=== PATIENT | male | born 1960 | race Caucasian/White ===

== ENCOUNTER 2019-10-15 12:13 | Inpatient (IN) ==
[2019-10-15] MEDS ORDERED: NITROGLYCERIN SL 0.4 MG TABLET SL ONE (12:33)
[2019-10-15] MEDS ORDERED: ASPIRIN 325 MG TABLET ONE (12:33)
[2019-10-15] MEDS ORDERED: NITROGLYCERIN SL 0.4 MG TABLET SL PRN (12:38)
[2019-10-15] MEDS ORDERED: ONDANSETRON 4 MG/2 ML VIAL ONE (12:38)
[2019-10-15] MEDS ORDERED: MORPHINE 4 MG/1 ML VIAL IV STA (12:38)
[2019-10-15] MEDS ORDERED: ENOXAPARIN 100 MG/ML SYRINGE SUBCUT ONE (12:38)
[2019-10-15] MEDS ORDERED: ONDANSETRON 4 MG/2 ML VIAL IV STA (12:38)
[2019-10-15] MEDS ORDERED: ASPIRIN 325 MG TABLET PO STA (12:38)
[2019-10-15] MEDS ORDERED: ENOXAPARIN 100 MG/ML SYRINGE SUBCUT STA (12:38)
[2019-10-15] MEDS ORDERED: MORPHINE 4 MG/1 ML VIAL ONE (12:39)
[2019-10-15] MEDS ORDERED: LIDOCAINE 1% 20 ML VIAL ONE (12:42)
[2019-10-15] MEDS ORDERED: ZALEPLON 5 MG CAPSULE PO PRN (12:42)
[2019-10-15] MEDS ORDERED: DOCUSATE SODIUM 100 MG CAPSULE PO PRN (12:42)
[2019-10-15] MEDS ORDERED: HEPARIN/NACL 0.9% 2 UNITS/ML 1,000 ML IV ONE (12:42)
[2019-10-15] MEDS ORDERED: diphenhydrAMINE CAP 25 MG CAPSULE PO ONE (12:45)
[2019-10-15] MEDS ORDERED: DIAZEPAM 5 MG TABLET PO ONE (12:45)
[2019-10-15 12:48] LABS: Basophils % 0.3 % (0.0-0.8); Eosinophils # 0.3 10*3/uL (0.0-0.87); Hemoglobin 16.1 GM/DL (14.0-18.0); Immature Granulocytes % 0.4 %; Immature Granulocytes Absolute 0.05 #; Lymphocytes # 2.9 10*3/uL (1.4-4.0); Lymphocytes % 22.7 % (21.2-54.2); Mean Corpuscular HGB Conc 32.9 GM/DL (32-36); Mean Corpuscular Volume 86.6 FL (87-102); Mean Platelet Volume 10.5 FL (9.6-12.0); Monocytes % 6.9 % (1.7-12.7); Neutrophils % 67.7 % (38.7-73.9); Platelet Count 239 T/CUMM (130-400); Red Blood Count 5.66 MC/CUMM (3.8-5.5); Red Cell Distribution Width 13.2 % (9.3-17.3); White Blood Count 12.8 T/CUMM (4-12)
[2019-10-15] MEDS ORDERED: MIDAZOLAM 2 MG/2 ML VIAL ONE (12:54)
[2019-10-15] MEDS ORDERED: VERAPAMIL 5 MG/2 ML VIAL ONE (12:54)
[2019-10-15] MEDS ORDERED: HYDROmorphone 2 MG/1 ML VIAL ONE (12:54)
[2019-10-15] MEDS ORDERED: NITROGLYCERIN DRIP 50 MG/250 ML BOTTLE IV ONE (12:54)
[2019-10-15] MEDS ORDERED: SODIUM CHLORIDE 0.45% 1,000 ML IV SCH (13:00)
[2019-10-15] MEDS ORDERED: EPTIFIBATIDE 75 MG/100 ML BOTTLE IV ONE (13:02)
[2019-10-15] MEDS ORDERED: EPTIFIBATIDE 20,000 MCG/10 ML VIAL ONE (13:02)
[2019-10-15 13:03] LABS: INR 0.9; PT Patient Result 10.1 SECS (9.8-11.9)
[2019-10-15] MEDS ORDERED: EPTIFIBATIDE 75 MG/100 ML BOTTLE IV SCH (13:06)
[2019-10-15 13:09] LABS: Albumin 3.7 G/DL (3.4-5.0); Bilirubin,Total 0.5 MG/DL (0.2-1.0); Calcium 9.2 MG/DL (8.5-10.1); Osmolality,Calculated 274.7 MOS/KG (273-304)
[2019-10-15] MEDS ORDERED: TICAGRELOR 90 MG TABLET ONE (13:39)
[2019-10-15] MEDS ORDERED: SODIUM CHLORIDE 0.9% 1,000 ML IV SCH (14:00)
[2019-10-15] MEDS: carvediloL 6.25 MG TABLET PO SCH (21:07)
[2019-10-15] MEDS: TICAGRELOR 90 MG TABLET PO SCH (21:08)
[2019-10-15] MEDS: ACETAMINOPHEN 325 MG TABLET PO PRN (21:08)
[2019-10-15] MEDS: ROSUVASTATIN 20 MG TABLET PO SCH (21:08)
[2019-10-16 04:17] LABS: Basophils % 0.2 % (0.0-0.8); Eosinophils # 0.2 10*3/uL (0.0-0.87); Eosinophils % 1.6 % (0.00-10.9); Hematocrit 45.2 VOL% (42.0-52.0); Immature Granulocytes % 0.4 %; Immature Granulocytes Absolute 0.04 #; Lymphocytes # 2.1 10*3/uL (1.4-4.0); Lymphocytes % 19.8 % (21.2-54.2); Mean Corpuscular HGB Conc 33.2 GM/DL (32-36); Mean Corpuscular Volume 85.6 FL (87-102); Mean Platelet Volume 10.9 FL (9.6-12.0); Monocytes % 8.3 % (1.7-12.7); Neutrophils % 69.7 % (38.7-73.9); Platelet Count 215 T/CUMM (130-400); Red Blood Count 5.28 MC/CUMM (3.8-5.5); Red Cell Distribution Width 13.1 % (9.3-17.3); White Blood Count 10.8 T/CUMM (4-12)
[2019-10-16 05:05] LABS: Calcium 8.3 MG/DL (8.5-10.1); Osmolality,Calculated 276.4 MOS/KG (273-304); Risk Ratio 5.26; Thyroid Stimulating Hormone 1.77 uIU/ml (0.358-3.74)
[2019-10-16] MEDS: ASPIRIN EC 81 MG TABLET PO SCH (09:54)
[2019-10-16] MEDS: TICAGRELOR 90 MG TABLET PO SCH ×2 (09:54→21:10)
[2019-10-16] MEDS: PANTOPRAZOLE 40 MG TABLET PO SCH (09:54)
[2019-10-16] MEDS: carvediloL 6.25 MG TABLET PO SCH (11:29)
[2019-10-16] MEDS: LOSARTAN 25 MG TABLET PO SCH (13:58)
[2019-10-16] MEDS: ROSUVASTATIN 20 MG TABLET PO SCH (21:10)
[2019-10-16] MEDS: ACETAMINOPHEN 325 MG TABLET PO PRN (21:10)
[2019-10-17 06:13] LABS: Basophils % 0.2 % (0.0-0.8); Eosinophils # 0.2 10*3/uL (0.0-0.87); Eosinophils % 2.7 % (0.00-10.9); Hemoglobin 15.1 GM/DL (14.0-18.0); Immature Granulocytes % 0.2 %; Immature Granulocytes Absolute 0.02 #; Lymphocytes # 2.4 10*3/uL (1.4-4.0); Lymphocytes % 26.8 % (21.2-54.2); Mean Corpuscular HGB Conc 32.8 GM/DL (32-36); Mean Corpuscular Volume 86.3 FL (87-102); Mean Platelet Volume 10.7 FL (9.6-12.0); Monocytes % 9.3 % (1.7-12.7); Neutrophils % 60.8 % (38.7-73.9); Platelet Count 214 T/CUMM (130-400); Red Blood Count 5.33 MC/CUMM (3.8-5.5); Red Cell Distribution Width 13.1 % (9.3-17.3); White Blood Count 8.8 T/CUMM (4-12)
[2019-10-17 06:29] LABS: Calcium 8.6 MG/DL (8.5-10.1); Osmolality,Calculated 275.5 MOS/KG (273-304)
[2019-10-17] MEDS: TICAGRELOR 90 MG TABLET PO SCH (08:21)
[2019-10-17] MEDS: LOSARTAN 25 MG TABLET PO SCH (08:21)
[2019-10-17] MEDS: PANTOPRAZOLE 40 MG TABLET PO SCH (08:21)
[2019-10-17] MEDS: ASPIRIN EC 81 MG TABLET PO SCH (08:21)
[2019-10-17 09:04] LABS: CKMB % 2.4 %
[2019-10-17 09:19] LABS: Troponin I 12.4 NG/ML (0.00-0.045)
[2019-10-17 11:15] VITALS: BP 98/63
== END 2019-10-17 14:14 | disposition home or self-care (01) | DRG 251 ==
LOC: N.EDINP 12:13 → N.ED 12:13 → N.ICU 12:42 → N.TELEN 10-16 13:57
PROVIDERS: ADMIT Internal Medicine Cardiovascular Disease; ATTEND Internal Medicine Cardiovascular Disease